=== PATIENT | male | born 1995 | race Caucasian/White ===

== ENCOUNTER 2023-07-04 11:50 | Outpatient (AMB) | payer OTHER, SELFPAY ==
--- NOTE | 2023-07-04 11:51 | MHC.PC.OV ---
Vital Signs 07/04/23 11:59 Weight 178 lb 8 oz BP 102/58 L Blood Pressure Location Lt brachial Position Sitting Respiration 14 Pulse 96 Pulse Source Pulse Oximeter Pulse Oximetry (%) 99 Oxygen Delivery Method Room Air Intake Visit Reasons: Infected Green Finger Intake Note: Patient is here for an evaluation of his R middle finger which appears swollen, green in color and patient reports pain is an 8/10. Patient reports this has been ongoing for 2 weeks and he has started having difficulty grabbing things with his right hand. Patient is accompanied by his family member at todays visit. Shoe Worker Required: No Accompanied by: Unknown Allergies No Known Allergies Allergy (Verified 07/04/23 12:05) Tobacco use date assessed: 07/04/23 HPI Infected Green Finger HPI Details 28 y/o male presents with ? infected R middle finger. Patient is here for an evaluation of his R middle finger which appears swollen, green in color and patient reports pain is an 8/10. Patient reports this has been ongoing for 2 weeks and he has started having difficulty grabbing things with his right hand. [facility] Medical History (Updated 07/04/23 @ 12:39 by Alexander Claire) Small bowel obstruction Family History (System 11/07/20 @ 07:07 by Naila Martinez) Mother No problems noted. Father No problems noted. Social History (System 11/07/20 @ 07:07 by Naila Martinez) Housing: Apartment Alcohol intake: current Alcohol intake frequency: a few times a week Alcohol type: beer Patient Tobacco Use Status: Current everyday Tobacco user Cigarettes Per Day: 5 e-Cigarette/Vaping Use: Never Used Second Hand Smoke Exposure: No service: No Current occupational status: unemployed Current occupational exposures/hazards: No Cognitive needs: No Hearing needs: No Vision needs: No Questionnaire CORNELIA-7 AMB Questionnaire CORNELIA-7 Date CORNELIA - 7 assessed: 05/11/22 Source: Developed by Drs. John Brown, Татьяна Lowery, Yaya Bond and colleagues, with an educational dylan from [employer]. Review of Systems Const Denies chills, Denies fatigue, Denies fever(s), Denies headache(s) and Denies weakness ENT Denies dizziness and Denies headache(s) Card Denies dyspnea Resp Denies cough, Denies dyspnea, Denies wheezing and Denies other (shortness of breath) Musc Denies numbness and Denies tingling Neuro Denies dizziness, Denies headache(s), Denies numbness, Denies tingling and Denies weakness Psych Denies anxiety and Denies depression Endo Denies fatigue Aller/Immun Denies wheezing Physical exam (Primary Care) Vital Signs: Last Vital Signs Pulse 96 07/04/23 11:59 Resp 14 07/04/23 11:59 BP 102/58 L 07/04/23 11:59 Pulse Ox 99 07/04/23 11:59 Oxygen Delivery Method Room Air 07/04/23 11:59 Tobacco/Smoking Status: Tobacco use Status Tobacco use date assessed 07/04/23 07/04/23 12:06 Patient Tobacco Use Status Current everyday Tobacco 07/04/23 11:52 e-Cigarette/Vaping Use Never Used 07/04/23 11:52 Const General: well developed; No acute distress Nutritional Appearance: well nourished Orientation/consciousness: patient oriented x3 HENMT Head: Yes normocephalic and Yes atraumatic Eyes General: appearance normal, both eyes and all related structures Pupils: Equal, round and reactive pupils present EOM: EOMs intact bilaterally Resp Effort & Inspection: normal respiratory effort Neuro General: patient oriented x3 and gait normal Cranial nerves: Yes Equal, round and reactive pupils present Extrem Other: Distal?tip?of?right?3rd?finger?is?red?and?swollen?and?tender. Periungual?region?has?fluctuant?but?firm?abscess Psych Affect: normal affect Assessment and Plan Assessment & Plan (1) Infection of finger: Code(s): L08.9 - Local infection of the skin and subcutaneous tissue, unspecified Plan: The?patient's?finger?was?prepped?and?draped?in?the?usual?fashion using?Betadine?solution Ethyl?chloride?was?used?as?a?distracted?anesthetic A?single?stab?wound?with a #11 scalpel?was?made?at?the?dorsal?distal?tip?of?the?finger?about?0.5?cm?from?the?fingernail. Approximately?3?cc?of?pus?was?expressed. A?wound?culture?was?acquired?and?will?be?sent?to?the?lab Patient?tolerated?the?procedure?well?and?noted?relief. Will?start?him?on?cephalexin?and?he?should?finish?all?the?antibiotic?unless?there?is?a?problem.??Call?for?any?problems. (2) Abscess: Code(s): L02.91 - Cutaneous abscess, unspecified Orders: Orders Routine Culture w Gram Stain Today L02.91 - Cutaneous abscess, unspecified Medications: New cephalexin 500 mg PO Q12H 10 days 20 caps 0RF Coding Level of Care Code Est Pt Level 3 (36502) Diagnoses Infection of finger L08.9 Abscess L02.91
[2023-07-04 11:59] VITALS: BP 102/58; PULSE 96; RESP 14; O2SAT 99
== END 2023-07-04 12:51 | disposition home or self-care (01) ==
PROVIDERS: PCP Family Medicine; Visit Provider Family Medicine
DX: L08.9 Local infection of the skin and subcutaneous tissue, unspecified (principal); L02.511 Cutaneous abscess of right hand
CPT/HCPCS: 10060; 99213

== ENCOUNTER 2023-07-04 12:46 | Outpatient (REF) | payer OTHER, SELFPAY | END 2023-07-04 12:47 | disposition home or self-care (01) | LOC: HO.LAB 12:46 | PROVIDERS: Visit Provider Family Medicine | DX: L02.91 Cutaneous abscess, unspecified (principal) | CPT/HCPCS: 87070; 87205 ==

== ENCOUNTER 2024-03-01 11:12 | Outpatient (AMB) | payer OTHER, SELFPAY ==
--- OUTSIDE RECORDS SUMMARY | 2024-03-01 11:13 | XMS_ITS | Continuity of Care Document ---
Author Organization [facility] ter Address [address] [place] [id number]- Care Team Providers Care Pharmacology Teacher Name Role Phone Not on Staff, PCP Primary Care Physician Unavail able Encounter [facility] Date(s): 06/20/20 - 06/20/[address] [address]- Discharge Disposition: A-D/C Home Attending Physician: Igor Nevarez MD Admitting Physician: Igor Nevarez MD Referring Physician: Not on Staff, Referring MD Allergies, Adverse Reactions, Alerts Substance Reaction Severity Status NKA Active Immunizations Given and Recorded Vaccine Date Status Refusal Reason tetanus/diphtheria/pertussis, acel(Tdap) 06/20/20 Given Not Given Vaccine Date Status Refusal Reason pneumococcal 23-valent vaccine 12/24/18 Not Given Patient Refuses pneumococcal 23-valent vaccine 11/10/18 Not Given Patient Refuses Medications acetaminophen 325 mg oral tablet 650 mg, 2, tablet, By Mouth, Every 4 hours, PRN, Refills 0, Maintenance, as needed for pain, 01/18/19 13:40:55 EDT Start Date: 01/18/19 Status: Ordered buPROPion 100 mg oral tablet 1 tablet = 100 mg, By Mouth, 2 times a day, 0 Refills, Maintenance, 12/23/18 22:16:10 EDT Start Date: 12/23/18 Status: Ordered buPROPion 100 mg/12 hours (SR) oral tablet, extended release 1 tablet = 100 mg, By Mouth, Daily in AM, # 30 tablet, 0 Refills, Maintenance, 11/16/18 10:14:13 EDT, SR Tablet Start Date: 11/16/18 Stop Date: 12/16/18 Status: Ordered docusate sodium 100 mg oral capsule 100 mg, 1, capsule, By Mouth, 2 times a day, PRN, # 60 capsule, Refills 0, Tot. Refills 0, Maintenance, as needed for constipation, 01/05/19 15:32:35 EDT, Print Requisition Start Date: 01/05/19 Stop Date: 02/04/19 Status: Ordered gabapentin 100 mg oral capsule 100 mg, 1, capsule, By Mouth, 3 times a day, # 90 capsule, Refills 0, Tot. Refills 0, Maintenance, 01/18/19 14:13:57 EDT, Route to Pharmacy Electronically, [id number], [facility]/pharmacy #[id number] Start Date: 01/18/19 Status: Ordered HydrOXYzine HCL Tablet = 50 mg, By Mouth, 2 times a day, 0 Refills, Maintenance, 12/23/18 22:14:44 EDT Start Date: 12/23/18 Status: Ordered ibuprofen 600 mg oral tablet 600 mg, 1, tablet, By Mouth, 4 times a day, PRN, # 40 tablet, Refills 0, Tot. Refills 0, Maintenance, for pain, 01/24/19 23:00:55 EDT, Print Requisition Start Date: 01/24/19 Stop Date: 02/03/19 Status: Ordered Keppra 750 mg oral tablet 1 tablet = 750 mg, By Mouth, 2 times a day, # 60 tablet, 0 Refills, Maintenance, 04/07/20 3:59:00 EDT, Tablet, [facility]/pharmacy #[id number], 183, cm, 04/07/20 0:50:00 EDT, Height, 91, kg, 04/07/20 0:50:00 EDT,Dry Weight Start Date: 04/07/20 Status: Ordered Keppra 750 mg oral tablet 1 tablet = 750 mg, By Mouth, 2 times a day, # 60 tablet, 0 Refills, Maintenance, 04/07/20 4:05:00 EDT, Tablet, [facility]/pharmacy #[id number], 183, cm, 04/07/20 0:50:00 EDT, Height, 91, kg, 04/07/20 0:50:00 EDT,Dry Weight Start Date: 04/07/20 Status: Ordered Keppra XR 750 mg oral tablet, extended release 2 tablet = 1,500 mg, By Mouth, Daily, pt states he doesn't take his meds regularly, # 60 tablet, 0 Refills, Maintenance, 01/11/17 23:59:57, ER Tablet Start Date: 01/11/17 Status: Ordered levETIRAcetam = 750 mg, By Mouth, 2 times a day, 0 Refills, Maintenance, 12/23/18 22:16:59 EDT Start Date: 12/23/18 Status: Ordered levETIRAcetam 750 mg oral tablet 1 tablet = 750 mg, By Mouth, 2 times a day, # 60 tablet, 0 Refills, Maintenance, 11/16/18 10:13:55 EDT Start Date: 11/16/18 Stop Date: 12/16/18 Status: Ordered oxyCODONE 5 mg oral capsule 1 capsule = 5 mg, By Mouth, Every 6 hours, PRN for pain, # 7 capsule, 0 Refills, Maintenance, 01/26/19 6:42:50 EDT, Capsule, Partial fill upon patient request Start Date: 01/26/19 Status: Ordered oxyCODONE 5 mg oral tablet 5 mg, 1, tablet, By Mouth, Every 6 hours, PRN, Refills 0, Tot. Refills 0, Maintenance, for pain, 01/18/19 13:40:31 EDT, Partial fill upon patient request Start Date: 01/18/19 Status: Ordered Quetiapine 200 mg, By Mouth, Daily, Refills 0, Maintenance, 12/23/18 22:17:40 EDT Start Date: 12/23/18 Status: Ordered SEROquel 200 mg oral tablet See Instructions, take 2 tabs by mouth daily at supper, and 1/2 tab by mouth twice a day as needed for anxiety/agitation. not to exceed 600mg per day., # 90 tablet, Refills 0, Tot. Refills 0, Maintenance, 11/16/18 10:14:41 EDT, Instructions Replace Re... Start Date: 11/16/18 Status: Ordered Zolpidem 10, By Mouth, Daily at bedtime, 0 Refills, Maintenance, 12/23/18 22:18:28 EDT Start Date: 12/23/18 Status: Ordered Problem List Condition Effective Dates Status Health Status Inform ant Depression(Confirmed) Active Seizure(Confirmed) Active Generalized tonic-clonic seizure(Confirmed) Active Results Radiology Reports * Exam Date Time Procedure Performing Provider Status 06/20/20 1:44 PM Hand Min 3 Views Right John Dominguez (Verified) Notes: (Hand Min 3 Views Right) Reason For Exam: with Pain;Trauma RESULT: Hand Min 3 Views Right PROCEDURE: Hand Min 3 Views Right CLINICAL INDICATION: 25 years old Male pt reports cutting 3rd and 4th fingers on R hand yesterday with a kitchen knife, c o pain and coming for eval.; COMPARISONS: None. FINDINGS: Bones and joints: No fracture or dislocation. Joint spaces are normal. Soft Tissues: Regional soft tissues are unremarkable. No evidence of radiopaque foreign body. IMPRESSION: 1. No evidence of acute bony injuries. Thank you for allowing me to participate in the care of this patient. WSN: [id number] Ordering Physician: John Mcintyre MD Dictated By: Minna Caputo MD Dictated Date/Time: 06/20/20 2:33 pm Reviewed By: Minna Caputo MD Signed By: Minna Caputo MD Signed Date/Time: 06/20/20 2:33 pm Transcribed By: KIMMIE Transcribed Date/Time: 06/20/20 2:32 pm Vital Signs Most recent to oldest [Reference Range]: 1 2 Weight 86.1 kg (06/20/20 1:32 PM) 86.1 kg (06/20/20 1:31 PM) Oxygen Saturation [94-100 %] 98 % (06/20/20 1:31 PM) Pulse Rate [55-90 bpm] 70 bpm (06/20/20 1:31 PM) Blood Pressure [90-138/55-84 mm Hg] 127/ 69mm Hg (06/20/20 1:31 PM) Respiratory Rate [16-30 br/min] 14 br/mi n *L* (06/20/20 1:31 PM) Temperature [96.8-100.4 DegF] 98.6 DegF (06/20/20 1:31 PM) Mode of Delivery (Oxygen) Room air (06/20/20 1:31 PM) Blood pressure sites Arm, right (06/20/20 1:31 PM) Temperature Route Oral (06/20/20 1:31 PM) Dry Weight 86.1 kg (06/20/20 1:32 PM) 86.1 kg (06/20/20 1:31 PM) Weight Obtained Via Standing scale (06/20/20 1:31 PM) Dry Weight Obtained Via Standing scale (06/20/20 1:31 PM) Social History Social History Type Response Smoking Status Never smoker entered on: 03/14/15 Sex Male
--- OUTSIDE RECORDS SUMMARY | 2024-03-01 11:13 | XMS_ITS | Continuity of Care Document ---
Author Organization [facility] Address [address] [facility], [address] d Floor, [address] [place] [phone]- Care Team Providers Care Corrugator Machine Operator Name Role Phone Not on Staff, PCP Primary Care Physician Unavail able [place] [facility] [place]/23 [facility] [address], [address], [address] [place] [address]- Attending Physician: Kath Hadley Admitting Physician: Kath Hadley Referring Physician: AdmtrKath Allergies, Adverse Reactions, Alerts No Known Allergies Immunizations Given and Recorded Vaccine Date Status Refusal Reason tetanus/diphtheria/pertussis, acel(Tdap) 06/20/20 Given Medications acetaminophen 325 mg oral tablet 650 [...] 01/18/19 14:13:57 EDT, Route to Pharmacy Electronically, [id number], [facility]/pharmacy #[id number] Start Date: 01/18/19 Status: Ordered hydrOXYzine hydrochloride 25 mg oral tablet 1 tablet = 25 mg, By Mouth, 2 times a day, # 30 tablet, 0 Refills, Maintenance, 04/14/23 20:36:00 EDT, Tablet, Partial fill upon patient request if the prescription is for a schedule II opioid drug. Start Date: 04/14/23 Status: Ordered ibuprofen 600 mg oral tablet 600 mg, 1, tablet, By Mouth, 4 times a day, PRN, # 40 tablet, Refills 0, Tot. Refills 0, Maintenance, for pain, 01/24/19 23:00:55 EDT, Print Requisition Start Date: 01/24/19 Stop Date: 02/03/19 Status: Ordered Keppra 1000 mg oral tablet 1 tablet = 1,000 mg, By Mouth, 2 times a day, # 60 tablet, 0 Refills, Maintenance, 04/15/23 12:33:00 EDT, Tablet, Partial fill upon patient request if the prescription is for a schedule II opioid drug. Start Date: 04/15/23 Status: Ordered methadone 40 mg oral tablet, dispersible = 60 mg, By Mouth, Daily, 0 Refills, Maintenance, 04/14/23 20:51:00 EDT, Partial fill upon patient request if the prescription is for a schedule II opioid drug. Start Date: 04/14/23 Status: Ordered naloxone 4 mg/0.1 mL nasal spray 1 sprays, Naris, Left, Once, PRN Other respiratory depression, # 1 kit, 0 Refills, Soft Stop, 07/09/20 11:32:00 EST, [facility]/pharmacy #[id number], Partial fill upon patient request if the prescription is fora schedule II opioid drug., 183, cm, 04/07/20 0:50:... Start Date: 07/09/20 Status: Ordered prazosin 1 mg oral capsule 1 mg, 1, capsule, By Mouth, Daily at bedtime, # 30 tablet, Refills 0, Maintenance, 04/14/23 20:19:00 EDT, Partial fill upon patient request if the prescription is for a schedule II opioid drug. Start Date: 04/14/23 Status: Ordered Suboxone 8 mg-2 mg Sublingual Film 2 film, Sublingual, Daily, XDEA script for dr robles starr [id number], # 10 film, 0 Refills, Maintenance, 07/09/20 11:32:00 EST, [facility]/pharmacy #[id number], Partial fill upon patient request if the prescription is for a schedule II opioid drug., 2 film Beltran... Start Date: 07/09/20 Status: Ordered Problem List Condition Confirmation Course Effective Dates Status Health St atus Informant Depression Confirmed Active Seizure Confirmed Active Generalized tonic-clonic seizure Confirmed Active Social History Social History Type Response Smoking Status Smoker, current stat us unknown entered on: 04/14/23 Sex Male Patient Care team information Care Team Personnel Name: Belem Ruiz RN Position: [facility] RN Member Role: Primary Care Nurse Name: Not on Staff, PCP Position: [facility] Physician (General Medicine) Member Role: PCP Name: Jessy Easton RN Position: S RN Member Role: Primary Care Nurse Name: Thalia Nguyen RN Position: S RN Member Role: Primary Care Nurse Care Team Related Persons Name: MERLIN AVILAA Address: [address] [place] [address] Name: ERICKSON HUITRON Address: [address] [place] [address]
--- OUTSIDE RECORDS SUMMARY | 2024-03-01 11:13 | XMS_ITS | Continuity of Care Document ---
Author Organization [facility] ter Address [address] [place] [phone]- Care Team Providers Care Foxer Name Role Phone Ben ROUSE, Shannan Primary Care Physician [phone] [place] [facility] [place] 10/[place]/[address] [address] [place] Encounter Diagnosis Opiate overdose(Final) - 10/25/19 Discharge Disposition: A-D/C Home Attending Physician: John Paul Herrera MD Admitting Physician: John Paul Herrera MD Referring Physician: Not on Staff, Referring MD Allergies, Adverse Reactions, Alerts Substance Reaction Severity Status NKA Active Immunizations Not Given Vaccine Date Status Refusal Reason [...] 01/18/19 14:13:57 EDT, Route to Pharmacy Electronically, [id number], [facility]/pharmacy #[id number] Start Date: 01/18/19 Status: Ordered HydrOXYzine [...] 01/24/19 Stop Date: 02/03/19 Status: Ordered Keppra XR 750 mg oral [...] Active Seizure(Confirmed) Active Generalized tonic-clonic seizure(Confirmed) Active Vital Signs Most recent to oldest [Reference Range]: 1 2 3 Oxygen Saturation [94-100 %] 95 % (10/25/19 9:28 AM) 98 % (10/25/19 8:37 AM) 97 % (10/25/19 6:05 AM) Pulse Rate [55-90 bpm] 113 bpm *H* (10/25/19 9:28 AM) 104 bpm *H* (10/25/19 8:37 AM) 115 bpm *H* (10/25/19 6:05 AM) Blood Pressure [90-138/55-84 mm Hg] 134/75mm Hg (10/25/19 9:28 AM) 137/92mm Hg (10/25/19 8:37 AM) 134/88mm Hg (10/25/19 6:05 AM) Respiratory Rate [16-30 br/min] 18 br/min (10/25/19 9:28 AM) 20 br/min (10/25/19 8:37 AM) 19 br/min (10/25/19 6:05 AM) Temperature [96.8-100.4 DegF] 97.7 DegF (10/25/19 8:37 AM) 97.3 DegF (10/25/19 6:05 AM) Mode of Delivery (Oxygen) Room air (10/25/19 9:28 AM) Room air (10/25/19 8:37 AM) Room air (10/25/19 6:05 AM) Blood pressure sites Arm, left (10/25/19 9:28 AM) Arm, left (10/25/19 8:37 AM) Temperature Route Oral (10/25/19 6:05 AM) Social History Social History Type Response Smoking Status Never smoker entered on: 03/14/15 Sex Male
--- OUTSIDE RECORDS SUMMARY | 2024-03-01 11:13 | XMS_ITS | Continuity of Care Document ---
Author Organization [facility] ter Address [address] [place] [id number]- Care Team Providers Care Painter Helper Name Role Phone Not on Staff, PCP Primary Care Physician Unavail able Encounter [facility] [place] Date(s): 11/09/20 - 11/10/[address] [address]- Encounter Diagnosis Seizure(Final) - 11/09/20 Discharge Disposition: A-D/C Home Attending Physician: Kymberly Matos MD Admitting Physician: Kymberly Matos MD Referring Physician: Not on Staff, Referring [...] 01/18/19 14:13:57 EDT, Route to Pharmacy Electronically, [id number], [facility]/pharmacy #[id number] Start Date: 01/18/19 Status: Ordered [...] 0 Refills, Maintenance, 04/07/20 3:59:00 EDT, Tablet, [facility]/pharmacy #[id number], 183, cm, 04/07/20 0:50:00 EDT, Height, 91, kg, 04/07/20 0:50:00 EDT,Dry Weight Start Date: 04/07/20 Status: Ordered Keppra 750 mg oral tablet 1 tablet = 750 mg, By Mouth, 2 times a day, # 60 tablet, 0 Refills, Maintenance, 04/07/20 4:05:00 EDT, Tablet, [facility]/pharmacy #[id number], 183, cm, 04/07/20 0:50:00 EDT, Height, 91, kg, 04/07/20 0:50:00 EDT,Dry Weight Start Date: 04/07/20 Status: Ordered Keppra 750 mg oral tablet 1 tablet = 750 mg, By Mouth, 2 times a day, # 60 tablet, 0 Refills, Maintenance, 11/09/20 18:16:00 EDT, Tablet, [facility]/pharmacy #[id number], Partial fill upon patient request if the prescription is for a schedule II opioid drug., 183, krystal, 10/29/20 23:23:00 EDT... Start Date: 11/09/20 Stop Date: 12/09/20 Status: Ordered Keppra XR 750 mg oral [...] Date: 11/16/18 Stop Date: 12/16/18 Status: Ordered naloxone 4 mg/0.1 mL nasal spray 1 sprays, Naris, Left, Once, PRN Other respiratory depression, # 1 kit, 0 Refills, Soft Stop, 07/09/20 11:32:00 EST, [facility]/pharmacy #[id number], Partial fill upon patient request if the prescription is fora schedule II opioid drug., 183, cm, 04/07/20 0:50:... Start Date: 07/09/20 Status: Ordered oxyCODONE 5 mg oral capsule [...] Replace Re... Start Date: 11/16/18 Status: Ordered Suboxone 8 mg-2 mg Sublingual Film 2 film, Sublingual, Daily, XDEA script for dr robles starr [id number], # 10 film, 0 Refills, Maintenance, 07/09/20 11:32:00 EST, [facility]/pharmacy #[id number], Partial fill upon patient request if the prescription is for a schedule II opioid drug., 2 film Beltran... Start Date: 07/09/20 Status: Ordered Zolpidem 10, By Mouth, Daily at bedtime, 0 Refills, Maintenance, 12/23/18 22:18:28 EDT Start Date: 12/23/18 Status: Ordered Problem List Condition Effective Dates Status Health Status Inform ant Depression(Confirmed) Active Seizure(Confirmed) Active Generalized tonic-clonic seizure(Confirmed) Active Vital Signs Most recent to oldest [Reference Range]: 1 2 3 Oxygen Saturation [94-100 %] 98 % (11/09/20 10:00 PM) 100 % (11/09/20 7:56 PM) 98 % (11/09/20 4:55 PM) Pulse Rate [55-90 bpm] 59 bpm (11/09/20 10:00 PM) 62 bpm (11/09/20 7:56 PM) 68 bpm (11/09/20 4:55 PM) Blood Pressure [90-138/55-84 mm Hg] 111/75mm Hg (11/09/20 10:00 PM) 104/58mm Hg (11/09/20 7:56 PM) 98/54mm Hg (11/09/20 4:55 PM) Respiratory Rate [16-30 br/min] 12 br/min *L* (5/16/21 10:00 PM) 13 br/min *L* (11/09/20 7:56 PM) 14 br/min *L* (11/09/20 4:55 PM) Temperature [96.8-100.4 DegF] 98.1 DegF (11/09/20 7:56 PM) 98.2 DegF (11/09/20 1:44 PM) Mode of Delivery (Oxygen) Room air (11/09/20 10:00 PM) Room air (11/09/20 7:56 PM) Room air (11/09/20 4:55 PM) Blood pressure sites Arm, left (11/09/20 10:00 PM) Arm, left (11/09/20 7:56 PM) Arm, left (11/09/20 4:55 PM) Temperature Route Oral (11/09/20 7:56 PM) Oral (11/09/20 1:44 PM) Social History Social History Type Response Smoking Status Never smoker entered on: 03/14/15 Sex Male
--- OUTSIDE RECORDS SUMMARY | 2024-03-01 11:13 | XMS_ITS | Continuity of Care Document ---
Author Organization [facility] Address [address] [facility] [place], [address] Floor, [address] [place] [phone]- Care Team Providers Care Frame Changer Name Role Phone Not on Staff, PCP Primary Care Physician Unavail able Encounter [facility] [place] Date(s): 05/05/23 - 09/02/23 [facility] [address], [address], [address] [place] [id number]- Attending Physician: Pilo De Souza MD Admitting Physician: Pilo De Souza MD Allergies, Adverse Reactions, Alerts No Known Allergies [...] 01/18/19 14:13:57 EDT, Route to Pharmacy Electronically, [id number], [facility]/pharmacy #[id number] Start Date: 01/18/19 Status: Ordered hydrOXYzine [...] 0 Refills, Soft Stop, 07/09/20 11:32:00 EST, [facility]/pharmacy #[id number], Partial fill upon patient request if [...] Daily, XDEA script for dr robles starr [id number], # 10 film, 0 Refills, Maintenance, 07/09/20 11:32:00 EST, [facility]/pharmacy #[id number], Partial fill upon patient request if [...] Team Personnel Name: Belem Ruiz RN Position: [facility] RN Member Role: Primary Care Nurse Name: Not on Staff, PCP Position: [facility] Physician (General Medicine) Member Role: PCP Name: Jessy Easton RN Position: [facility] RN Member Role: Primary Care Nurse Name: Thalia Nguyen RN Position: [facility] RN Member Role: Primary Care Nurse Care Team Related Persons Name: NATA AVILA Address: home [address] [place] [address] Name: ERICKSON HUITRON Address: [address] [place] [address]
--- OUTSIDE RECORDS SUMMARY | 2024-03-01 11:13 | XMS_ITS | Continuity of Care Document ---
Author Organization [facility] ter Address [address] [place] [id number]- Care Team Providers Care Artillery Or Naval Gunfire Observer Name Role Phone Not on Staff, PCP Primary Care Physician Unavail able Encounter [facility] Date(s): 01/28/21 - 01/28/[address] [address]- Discharge Disposition: A-D/C Home Attending Physician: Jose Arroyo MD Admitting Physician: Jose Arroyo MD Referring Physician: Not on Staff, Referring [...] 01/18/19 14:13:57 EDT, Route to Pharmacy Electronically, [id number], [facility]/pharmacy #[id number] Start Date: 01/18/19 Status: [...] 0 Refills, Maintenance, 04/07/20 3:59:00 EDT, Tablet, [facility]/pharmacy #[id number], 183, cm, 04/07/20 0:50:00 EDT, Height, 91, kg, 04/07/20 0:50:00 EDT,Dry Weight Start Date: 04/07/20 Status: Ordered Keppra 750 mg oral tablet 1 tablet = 750 mg, By Mouth, 2 times a day, # 60 tablet, 0 Refills, Maintenance, 04/07/20 4:05:00 EDT, Tablet, [facility]/pharmacy #[id number], 183, cm, 04/07/20 0:50:00 EDT, Height, 91, kg, 04/07/20 0:50:00 EDT,Dry Weight Start Date: 04/07/20 Status: Ordered Keppra 750 mg oral tablet 1 tablet = 750 mg, By Mouth, 2 times a day, # 60 tablet, 0 Refills, Maintenance, 11/09/20 18:16:00 EDT, Tablet, [facility]/pharmacy #[id number], Partial fill upon patient request if the prescription is for a schedule II opioid drug., 183, cm, 10/29/20 23:23:00 EDT... Start Date: 11/09/20 Stop [...] 0 Refills, Soft Stop, 07/09/20 11:32:00 EST, [facility]/pharmacy #[id number], Partial fill upon patient [...] Daily, XDEA script for dr robles starr [id number], # 10 film, 0 Refills, Maintenance, 07/09/20 11:32:00 EST, [facility]/pharmacy #[id number], Partial fill upon patient [...] 1 2 3 Oxygen Saturation [94-100 %] 99 % (01/28/21 10:50 PM) 99 % (01/28/21 8:56 PM) 98 % (01/28/21 8:43 PM) Pulse Rate [55-90 bpm] 80 bpm (01/28/21 10:50 PM) 69 bpm (01/28/21 8:56 PM) 78 bpm (01/28/21 8:43 PM) Blood Pressure [90-138/55-84 mm Hg] 102/51mm Hg (01/28/21 10:50 PM) 114/55mm Hg (01/28/21 8:56 PM) 114/55mm Hg (01/28/21 8:43 PM) Respiratory Rate [16-30 br/min] 18 br/min (01/28/21 10:50 PM) 13 br/min *L* (01/28/21 8:56 PM) 18 br/min (01/28/21 8:43 PM) Temperature [96.8-100.4 DegF] 99.9 DegF (01/28/21 4:44 PM) Mode of Delivery (Oxygen) Room air (01/28/21 10:50 PM) Room air (01/28/21 8:56 PM) Room air (01/28/21 8:43 PM) Blood pressure sites Arm, right (01/28/21 10:50 PM) Arm, left (01/28/21 8:56 PM) Arm, right (01/28/21 8:43 PM) Temperature Route Oral (01/28/21 4:44 PM) Social History Social History Type Response Smoking Status Never smoker entered on: 03/14/15 Sex Male
--- OUTSIDE RECORDS SUMMARY | 2024-03-01 11:13 | XMS_ITS | Continuity of Care Document ---
Author Organization [facility] ter Address [address] [place] [id number]- Care Team Providers Care Knitter Wire Mesh Name Role Phone Not on Staff, PCP Primary Care Physician Unavail able [place] [facility] [place]24[place]23 - 04/25/[address] [address]- Encounter Diagnosis Seizure(Final) - 04/25/23 Discharge Disposition: A-D/C Senior Care, Detention, or Halfway Fac Attending Physician: John Paul Herrera MD Admitting Physician: John Paul Herrera MD Referring Physician: Not on Staff, Referring MD Allergies, Adverse Reactions, Alerts No Known [...] 01/18/19 14:13:57 EDT, Route to Pharmacy Electronically, [id number], [facility]/pharmacy #[id number] Start Date: 01/18/19 Status: Ordered [...] 0 Refills, Soft Stop, 07/09/20 11:32:00 EST, [facility]/pharmacy #[id number], Partial fill upon patient request [...] Daily, XDEA script for dr robles starr [id number], # 10 film, 0 Refills, Maintenance, 07/09/20 11:32:00 EST, [facility]/pharmacy #[id number], Partial fill upon patient request if the prescription is for a schedule II opioid drug., 2 film Beltran... Start Date: 07/09/20 Status: Ordered Problem List Condition Confirmation Course Effective Dates Status Health St atus Informant Depression Confirmed Active Seizure Confirmed Active Generalized tonic-clonic seizure Confirmed Active Results Radiology Reports * Exam Date Time Procedure Performing Provider Status 04/25/23 1:31 AM XR Hip w/Pelvis 2-3 View Left Ting Mark; Auth (Verified) Notes: (XR Hip w/Pelvis 2-3 View Left) Reason For Exam: With Pain;Trauma RESULT: XR Hip w/Pelvis 2-3 View Left XR Hip w/Pelvis 2-3 View Left Hx of Present Illness: Coming from [facility] - had seizure approx 2-3 min and 2nd seizure, hx of seizures, on Keppra. Pt also sustained fall from top bunk earlier in day, abrasions reported toR leg, pt bit tongue, swelling to R face.; Reason: Trauma; With Pain; Clinical Question(s): Fracture. COMPARISON: None. FINDINGS: No acute displaced fracture or dislocation is seen. There is healed deformity of the proximal rightfemoral diaphysis with partially visualized intramedullary caleb and proximal interlocking screws. Normal hips and sacroiliac joints. Normal soft tissues. IMPRESSION: No acute displaced fracture. WSN: [id number] Ordering Physician: Yessi Medrano Dictated By: Jolly Malik MD Dictated Date/Time: 04/25/23 6:15 am Reviewed By: Jolly Malik MD Signed By: Jolly Malik MD Signed Date/Time: 04/25/23 6:15 am Transcribed By: KIMMIE Transcribed Date/Time: 04/25/23 6:12 am * Exam Date Time Procedure Performing Provider Status 04/25/23 1:[address] Lumbar Spine W/O Contrast Tigist Ruiz; Auth (Verified) Notes: (CT Lumbar Spine W/O Contrast) Reason For Exam: Spine fracture, lumbar, traumatic;Other: RESULT: CT Lumbar Spine W/O Contrast CT Thoracic Spine W/O Contrast, CT Lumbar Spine W/O Contrast INDICATION: Fell from top bunk of bed. Seizure activity. Back pain. TECHNIQUE: Noncontrast CT of the thoracic spine was performed. Bone and soft tissue algorithms werereconstructed along with coronal and sagittal computations. Weight-based protocol using automatic tube modulation was used to optimize exposure parameters. RADIATION DOSE PARAMETERS: CTDIvol Body: 28.20 mGy, DLP Body: 1696 mGy*cm. COMPARISON: None. FINDINGS: Spine: No fractures or bone lesion. There is normal alignment. No spondylolysis. There exists abnormal hypermetabolic degenerative change. Soft tissues: No acute abnormality in the paravertebral soft tissues. No pleural effusion. IMPRESSION: No fracture or thoracic spine or lumbar spine. No spondylolysis or spondylolisthesis. No degenerative changes. Results were relayed by [facility] by Dr. Kwan to Yessi VAUGHAN on 04/25/2023 2:00 AM. I have personally reviewed the images and I agree with this report. WSN: [id number] Ordering Physician: Yessi Medrano Dictated By: Chito Kwan MD Dictated Date/Time: 04/25/23 7:29 am Reviewed By: Jelani Velazquez MD Signed By: Jelani Velazquez MD Signed Date/Time: 04/25/23 7:34 am Transcribed By: KIMMIE Transcribed Date/Time: 04/25/23 2:01 am * Exam Date Time Procedure Performing Provider Status 04/25/23 1:[address] Thoracic Spine W/O Contrast Tigist Jean; Auth (Verified) Notes: (CT Thoracic Spine W/O Contrast) Reason For Exam: Spine fracture, thoracic, traumatic;Other: RESULT: CT Thoracic Spine W/O Contrast CT Thoracic Spine W/O Contrast, CT Lumbar Spine W/O Contrast INDICATION: Fell from top bunk of bed. Seizure activity. Back pain. TECHNIQUE: Noncontrast CT of the thoracic spine was performed. Bone and soft tissue algorithms werereconstructed along with coronal and sagittal computations. Weight-based protocol using automatic tube modulation was used to optimize exposure parameters. RADIATION DOSE PARAMETERS: CTDIvol Body: 28.20 mGy, DLP Body: 1696 mGy*cm. COMPARISON: None. FINDINGS: Spine: No fractures or bone lesion. There is normal alignment. No spondylolysis. There exists abnormal hypermetabolic degenerative change. Soft tissues: No acute abnormality in the paravertebral soft tissues. No pleural effusion. IMPRESSION: No fracture or thoracic spine or lumbar spine. No spondylolysis or spondylolisthesis. No degenerative changes. Results were relayed by [facility] by Dr. Kwan to Yessi VAUGHAN on 04/25/2023 2:00 AM. I have personally reviewed the images and I agree with this report. WSN: [id number] Ordering Physician: Yessi Medrano Dictated By: Chito Kwan MD Dictated Date/Time: 04/25/23 7:29 am Reviewed By: Jelani Velazquez MD Signed By: Jelani Velazquez MD Signed Date/Time: 04/25/23 7:34 am Transcribed By: KIMMIE Transcribed Date/Time: 04/25/23 2:01 am * Exam Date Time Procedure Performing Provider Status 04/25/23 1:[address] Cervical Spine W/O Contrast Tigist Jean; Auth (Verified) Notes: (CT Cervical Spine W/O Contrast) Reason For Exam: Neck trauma, dangerous injury mechanism;Other: RESULT: CT Cervical Spine W/O Contrast CT Head/Brain W/O Contrast, CT Cervical Spine W/O Contrast Hx of Present Illness: Coming from [facility] - had seizure approx 2-3 min and 2nd seizure, hx of seizures, on keppra. Pt also sustained fall from top bunk earlier in day, abrasions reported toR leg, pt bit tongue, swelling to R face.; Reason: Trauma; Clinical Question(s): Hematoma. Neck pain. TECHNIQUE: Incremental CT without contrast through the head was formatted in axial and coronal planes. Spiral CT without contrast through the cervical spine was formatted in 3 planes. Weight-based protocol using automatic tube modulation was used to optimize exposure parameters. CTDIvol Body: 13.70 mGy, DLP Body: 362 mGy*cm. CTDIvol Head: 40.90 mGy, DLP Head: 672 mGy*cm. COMPARISON: 04/14/2023. FINDINGS: BRAIN and EXTRA-AXIAL SPACES: No parenchymal hemorrhage, midline shift or mass effect. Dawkins-white matter differentiation is well preserved. No acute infarct. Negative insular ribbon and hyperdense vessel signs. Ventricles, sulci and basilar cisterns are normal. No white matter lesions. No subarachnoid hemorrhage, subdural or epidural collections. CALVARIUM, SKULL BASE AND SOFT TISSUES: No fractures or suspicious bony lesions. The paranasal sinuses and mastoid air cells are clear. Visualized orbits and globes are intact. The extracranial soft tissues are unremarkable. CERVICAL SPINE: No fracture. No acute osseous abnormalities. Normal alignment. No locked or perched facet. Intervertebral discs are normal. OTHER BONES: No acute abnormality. CERVICAL SOFT TISSUES AND LUNG APICES: Clear lung apices. Normal thyroid gland. IMPRESSION: No acute intracranial abnormality. No acute fracture of the cervical spine. Results were relayed by [facility] by Dr. Kwan to Yessi VAUGHAN on 04/25/2023 1:55 AM. I have personally reviewed the images and I agree with this report. WSN: [id number] Ordering Physician: Yessi Medrano Dictated By: Chito Kwan MD Dictated Date/Time: 04/25/23 7:23 am Reviewed By: Scot Okeefe MD Signed By: Scot Okeefe MD Signed Date/Time: 04/25/23 7:28 am Transcribed By: KIMMIE Transcribed Date/Time: 04/25/23 1:55 am * Exam Date Time Procedure Performing Provider Status 04/25/23 1:[address] Head/Brain W/O Contrast Tigist Ruiz; Auth (Verified) Notes: (CT Head/Brain W/O Contrast) Reason For Exam: Trauma RESULT: CT Head/Brain W/O Contrast CT Head/Brain W/O Contrast, CT Cervical Spine W/O Contrast Hx of Present Illness: Coming from [facility] - had seizure approx 2-3 min and 2nd seizure, hx of seizures, on keppra. Pt also sustained fall from top bunk earlier in day, abrasions reported toR leg, pt bit tongue, swelling to R face.; Reason: Trauma; Clinical Question(s): Hematoma. Neck pain. TECHNIQUE: Incremental CT without contrast through the head was formatted in axial and coronal planes. Spiral CT without contrast through the cervical spine was formatted in 3 planes. Weight-based protocol using automatic tube modulation was used to optimize exposure parameters. CTDIvol Body: 13.70 mGy, DLP Body: 362 mGy*cm. CTDIvol Head: 40.90 mGy, DLP Head: 672 mGy*cm. COMPARISON: 04/14/2023. FINDINGS: BRAIN and EXTRA-AXIAL SPACES: No parenchymal hemorrhage, midline shift or mass effect. Dawkins-white matter differentiation is well preserved. No acute infarct. Negative insular ribbon and hyperdense vessel signs. Ventricles, sulci and basilar cisterns are normal. No white matter lesions. No subarachnoid hemorrhage, subdural or epidural collections. CALVARIUM, SKULL BASE AND SOFT TISSUES: No fractures or suspicious bony lesions. The paranasal sinuses and mastoid air cells are clear. Visualized orbits and globes are intact. The extracranial soft tissues are unremarkable. CERVICAL SPINE: No fracture. No acute osseous abnormalities. Normal alignment. No locked or perched facet. Intervertebral discs are normal. OTHER BONES: No acute abnormality. CERVICAL SOFT TISSUES AND LUNG APICES: Clear lung apices. Normal thyroid gland. IMPRESSION: No acute intracranial abnormality. No acute fracture of the cervical spine. Results were relayed by [facility] by Dr. Kwan to Yessi VAUGHAN on 04/25/2023 1:55 AM. I have personally reviewed the images and I agree with this report. WSN: [id number] Ordering Physician: Yessi Medrano Dictated By: Chito Kwan MD Dictated Date/Time: 04/25/23 7:23 am Reviewed By: Scot Okeefe MD Signed By: Scot Okeefe MD Signed Date/Time: 04/25/23 7:28 am Transcribed By: KIMMIE Transcribed Date/Time: 04/25/23 1:55 am Vital Signs Most recent to oldest [Reference Range]: 1 2 3 Oxygen Saturation [94-100 %] 100 % (04/25/23 4:53 AM) 99 % (04/25/23 3:22 AM) 100 % (04/25/23 1:50 AM) Pulse Rate [55-90 bpm] 68 bpm (04/25/23 4:53 AM) 69 bpm (04/25/23 3:22 AM) 67 bpm (04/25/23 1:50 AM) Blood Pressure [90-138/55-84 mm Hg] 107/55mm Hg (04/25/23 4:53 AM) 101/61mm Hg (04/25/23 3:22 AM) 106/53mm Hg (04/25/23 1:50 AM) Respiratory Rate [16-30 br/min] 8 br/min *L* (04/25/23 4:53 AM) 10 br/min *L* (04/25/23 3:22 AM) 13 br/min *L* (04/25/23 1:50 AM) Temperature [96.8-100.4 DegF] 98.1 DegF (04/25/23 4:53 AM) 98.1 DegF (04/25/23 3:22 AM) 98.1 DegF (04/25/23 1:50 AM) Mode of Delivery (Oxygen) Room air (04/25/23 4:53 AM) Room air (04/25/23 3:22 AM) Room air (04/25/23 1:50 AM) Blood pressure sites Arm, right (04/25/23 4:53 AM) Arm, right (04/25/23 3:22 AM) Arm, right (04/25/23 1:50 AM) Temperature Route Oral (04/25/23 4:53 AM) Oral (04/25/23 3:22 AM) Oral (04/25/23 1:50 AM) Social History Social History Type Response Smoking Status Smoker, current stat us unknown entered on: 04/14/23 Sex Male Note * Yessi Perkins: PERFORM Event Display: Patient Education Leaflets Authored Date: [id number] Recurrent Seizure (Adult) ?? [id number] Recurrent Seizure (Adult) You have had another seizure today. A common cause of seizures that keep happening (recurrent seizures) is missing doses of seizure medicine. But sometimes seizures are hard to control even when you take the medicine correctly. If this is the case for you, your healthcare provider may need to increase your dosage. Or you may need to add or change to another medicine. Home care Follow these tips when caring for yourself at home. ??? Seizures aren???t predictable. So don't do anything that might cause danger to you or other people if you have another seizure. Until the seizures are under good control, take these safety steps:o Don???t drive, ride a motorcycle, or ride a bike. o Don???t operate dangerous equipment such as power tools. o Take showers instead of baths. o Don???t swim or climb ladders, trees, or roofs. ??? Tell your close friends and relatives about your seizure. Teach them what to do for you if it happensagain. ??? If medicine was prescribed to prevent seizures, take it exactly as directed. Missing doses will increase the risk of having another seizure. ??? If you miss a dose, take the missed dose assoon as you remember. If it's almost time for your next dose, skip the missed dose. Restart the medicine at your next scheduled time. Don???t take extra medicine to make up for the missed dose. ??? Wear a Medic-Alert bracelet to let emergency staff know about your condition. ??? Follow a regular sleep schedule so that you get at least 6 to 8 hours of restful sleep every night. This is especially important when you're sick with a cold or flu or another type of infection. ??? Alcohol and illegal drugs can cause you to have more seizures. Ask your provider if you are allowed to drink any alcohol at all. For future seizures, if you're alone: ??? If you feel a seizure coming on, lie down on a bed or on the floor with something soft under your head. This will keep you from falling. Lie on your left side, not on your back. This will let fluid drain out of your mouth and prevent choking. Be sure you are clear of any objects that might injure you during the seizure. Call for help if there is time. For future seizures, if someone is with you: ??? The person should help you get into a safe position and call for help. The person shouldn???t try to force anything in your mouth once the seizure begins. This could harm your teeth or jaw. ?? Follow-up care Follow up with your healthcare provider. Keep a seizure calendar to record how often you have a seizure. If you're being started on anti-seizure medicine, ask your provider if you need additional control. Seizure medicine can affect how well control pills work, and you could become . Some women who take seizure medicine also need certain vitamins. Tell your provider if you plan on getting or if you become . Don't drink alcohol until your provider tells you it???s OK. Each state has different laws that say when someone with seizures is allowed to drive. Some states require that a seizure disorder to be reported to the state. They don't allow you to drive until your seizures are controlled. Talk with your provider to see if this applies to you. ?? Important Don't drive until you've followed up with your healthcare provider and you've been cleared to drive. ?? When to get medical care Call your healthcare provider right away??if any of these occur: ??? Seizures happen more often or last longer than normal ??? A seizure lasts more than 5 minutes ??? You don???t wake up between seizures ??? Confusion that lasts more than 30 minutes after a seizure ??? Injury during a seizure ??? Fever of 100.4??F (38.0??C) or higher, or as advised by your provider ??? Unusual grouchiness, drowsiness, or confusion ??? Stiff or painful neck ??? Headache that gets worse? Last Reviewed Date: 2021 ?? 9127-0532 The [employer]. All rights reserved. This information is not intended as a substitute for professional medical care. Always follow your healthcare professional's instructions. ?? Patient Care team information Care Team Personnel Name: Belem Ruiz RN Position: [facility] RN Member Role: Primary Care Nurse Name: Not on Staff, PCP Position: [facility] Physician (General Medicine) Member Role: PCP Name: Jessy Easton RN Position: [facility] RN Member Role: Primary Care Nurse Name: Thalia Nguyen RN Position: [facility] RN Member Role: Primary Care Nurse Name: Daisy De Los Santos Position: [facility] MASSIEL SARGENT [facility] Member Role: Patient Care Provider Name: John Paul Herrera MD Position: [facility] ED Medicine MD Member Role: ED Attending Physician Address: Address: [address] [place] [address]- Name: Chio Monet Position: [facility] ED RN W/OE and Tasks Member Role: Patient Care Provider Name: Yessi Perkins Position: [facility] Associate Professional Member Role: ED Physician Counter Top Maker Address: Address: [address] [place] [address]- Care Team Related Persons Name: NATA AVILA Address: home [address] [place] [address] Name: ERICKSON HUITRON Address: home [address] [place] [address] Name: BUNNY HELM Address: home [address] [place] [address]
--- OUTSIDE RECORDS SUMMARY | 2024-03-01 11:13 | XMS_ITS | Continuity of Care Document ---
Author Organization [facility] ter Address [address] [place] [address]- Care Team Providers Care Activities Attendant Name Role Phone Not on Staff, PCP Primary Care Physician Unavail able [facility]counter [facility] Date[facility]s): 10/25/20 - 10/25/[address] [id number]- Discharge Disposition: A-D/C Walkout Attending Physician: Not on Staff, Attending MD Admitting Physician: Not on Staff, Admitting MD Referring Physician: Not on Staff, Referring [...] 01/18/19 14:13:57 EDT, Route to Pharmacy Electronically, [id number], [facility]/pharmacy #[id number] Start Date: 01/18/19 Status: Ordered [...] 0 Refills, Maintenance, 04/07/20 3:59:00 EDT, Tablet, [facility]/pharmacy #[id number], 183, cm, 04/07/20 0:50:00 EDT, Height, 91, kg, 04/07/20 0:50:00 EDT,Dry Weight Start Date: 04/07/20 Status: Ordered Keppra 750 mg oral tablet 1 tablet = 750 mg, By Mouth, 2 times a day, # 60 tablet, 0 Refills, Maintenance, 04/07/20 4:05:00 EDT, Tablet, [facility]/pharmacy #[id number], 183, cm, 04/07/20 0:50:00 EDT, [...] Stop, 07/09/20 11:32:00 EST, [facility]/pharmacy #[id number], Partial fill upon patient request [...] Daily, XDEA script for dr robles starr [id number], # 10 film, 0 Refills, Maintenance, 07/09/20 11:32:00 EST, [facility]/pharmacy #[id number], Partial fill upon patient request [...] Most recent to oldest [Reference Range]: 1 Oxygen Saturation [94-100 %] 99 % (10/25/20 7:06 PM) Pulse Rate [55-90 bpm] 103 bpm *H* (10/25/20 7:06 PM) Blood Pressure [90-138/55-84 mm Hg] 119/ 57mm Hg (10/25/20 7:06 PM) Respiratory Rate [16-30 br/min] 16 br/mi n (10/25/20 7:06 PM) Temperature [96.8-100.4 DegF] 98.5 DegF (10/25/20 7:06 PM) Mode of Delivery (Oxygen) Room air (10/25/20 7:06 PM) Blood pressure sites Arm, right (10/25/20 7:06 PM) Temperature Route Oral (10/25/20 7:06 PM) Social History Social History Type Response Smoking Status Never smoker entered on: 03/14/15 Sex Male
--- OUTSIDE RECORDS SUMMARY | 2024-03-01 11:14 | XMS_ITS | Continuity of Care Document ---
Author Organization [facility] ter Address [address] [place] [id number]- Care Team Providers Care Civil Engineering Draftsperson Name Role Phone Neal ROUSE, Giselle Way Primary Care Physician [place] [facility] [place](s): 11/18/21 - 11/18/[address] [address]- Discharge Disposition: A-D/C Home Attending Physician: Yris Park MD Admitting Physician: Yris Park MD Referring Physician: Not on Staff, Referring [...] 01/18/19 14:13:57 EDT, Route to Pharmacy Electronically, [id number], [facility]/pharmacy #[id number] Start Date: 01/18/19 [...] day, # 60 tablet, 0 Refills, Maintenance, 11/18/21 13:35:00 EDT, Tablet, [facility], Partial fill upon patient request if the prescription is for a schedule II opioid drug., 176, cm, 11/18/21 9:34:0... Start Date: 11/18/21 Stop Date: 12/18/21 Status: Ordered Keppra 750 mg oral tablet 1 tablet = 750 mg, By Mouth, 2 times a day, # 60 tablet, 0 Refills, Maintenance, 04/07/20 3:59:00 EDT, Tablet, [facility]/pharmacy #[id number], 183, cm, 04/07/20 0:50:00 EDT, Height, 91, kg, 04/07/20 0:50:00 EDT,Dry Weight Start Date: 04/07/20 Status: Ordered Keppra 750 mg oral tablet 1 tablet = 750 mg, By Mouth, 2 times a day, # 60 tablet, 0 Refills, Maintenance, 04/07/20 4:05:00 EDT, Tablet, [facility]/pharmacy #[id number], 183, cm, 04/07/20 0:50:00 EDT, Height, 91, kg, 04/07/20 0:50:00 EDT,Dry Weight Start Date: 04/07/20 Status: Ordered Keppra 750 mg oral tablet 1 tablet = 750 mg, By Mouth, 2 times a day, # 60 tablet, 0 Refills, Maintenance, 11/09/20 18:16:00 EDT, Tablet, [facility]/pharmacy #[id number], Partial fill upon [...] Daily, XDEA script for dr robles starr [id number], # 10 film, 0 Refills, Maintenance, 07/09/20 11:32:00 EST, [facility]/pharmacy #[id number], [...] Exam Date Time Procedure Performing Provider Status 11/18/21 10:41 AM Chest Portable Beckie Carlson; Auth (Verified) Notes: (Chest Portable) Reason For Exam: Shortness of Breath RESULT: Chest Portable Chest Portable CLINICAL INDICATION: Hx of Present Illness: Seizure; Reason: Shortness of Breath; Clinical Question(s): CHF COMPARISON: Chest x-ray, 02/25/2020. FINDINGS: The cardiac silhouette is within normal limits. Hilar and mediastinal contours are normal. The lungs are clear. There is no pleural effusion, pneumothorax, or evidence of CHF. No acute osseous abnormality is noted. IMPRESSION: No acute cardiopulmonary process. WSN: [id number] Ordering Physician: Kirk Hill Dictated By: Florence Tan MD Dictated Date/Time: 11/18/21 10:42 a Reviewed By: Florence Tan MD Signed By: Florence Tan MD Signed Date/Time: 11/18/21 10:42 am Transcribed By: KIMMIE Transcribed Date/Time: 11/18/21 10:42 am Vital Signs Most recent to oldest [Reference Range]: 1 2 3 Height 176 cm (11/18/21 9:30 AM) Weight 86.5 kg (11/18/21 9:30 AM) Oxygen Saturation [94-100 %] 100 % (11/18/21 1:30 PM) 100 % (11/18/21 12:00 PM) 96 % (11/18/21 10:00 AM) Pulse Rate [55-90 bpm] 82 bpm (11/18/21 1:30 PM) 81 bpm (11/18/21 12:00 PM) 87 bpm (11/18/21 10:00 AM) Blood Pressure [90-138/55-84 mm Hg] 128/83mm Hg (11/18/21 1:30 PM) 111/63mm Hg (11/18/21 12:00 PM) 94/51mm Hg (11/18/21 10:00 AM) Respiratory Rate [16-30 br/min] 18 br/min (11/18/21 1:30 PM) 16 br/min (11/18/21 12:00 PM) 18 br/min (11/18/21 10:00 AM) Temperature [96.8-100.4 DegF] 98.6 DegF (11/18/21 1:30 PM) 98.7 DegF (11/18/21 9:30 AM) Mode of Delivery (Oxygen) Room air (11/18/21 1:30 PM) Room air (11/18/21 12:00 PM) Room air (11/18/21 10:00 AM) Temperature Route Oral (11/18/21 1:30 PM) Oral (11/18/21 9:30 AM) Dry Weight 86.5 kg (11/18/21 9:30 AM) Social History Social History Type Response Smoking Status Never smoker entered on: 03/14/15 Sex Male
--- OUTSIDE RECORDS SUMMARY | 2024-03-01 11:14 | XMS_ITS | Continuity of Care Document ---
Author Organization [facility] ter Address [address] [place] [id number]- Care Team Providers Care Chief Medical Officer Name Role Phone Neal ROUSE, Giselle Way Primary Care Physician [place] [facility] [place]): [place]01[place]23 - 03/02/[address] [address]- Encounter Diagnosis Seizure(Final) - 03/02/23 Depression(Final) - 03/02/23 Substance use disorder(Final) - 03/02/23 Discharge Disposition: A-D/C Home Attending Physician: Yris Arevalo MD Admitting Physician: Yris Arevalo MD Referring Physician: Not on Staff, Referring [...] 01/18/19 14:13:57 EDT, Route to Pharmacy Electronically, [id number], [facility]/pharmacy #[id number] Start Date: 01/18/19 Status: Ordered [...] 0 Refills, Maintenance, 11/18/21 13:35:00 EDT, Tablet, [facility] 3, Partial fill upon patient request if the prescription is for a schedule II opioid drug., 176, cm, 11/18/21 9:34:0... Start Date: 11/18/21 Stop Date: 12/18/21 Status: Ordered Keppra 750 mg oral tablet 1 tablet = 750 mg, By Mouth, 2 times a day, # 60 tablet, 0 Refills, Maintenance, 04/07/20 3:59:00 EDT, Tablet, [facility]/pharmacy #[id number], 183, cm, 04/07/20 0:50:00 EDT, Height, 91, kg, 04/07/20 0:50:00 EDT,Dry Weight Start Date: 04/07/20 Status: Ordered Keppra 750 mg oral tablet 1 tablet = 750 mg, By Mouth, 2 times a day, # 60 tablet, 0 Refills, Maintenance, 04/07/20 4:05:00 EDT, Tablet, [facility]/pharmacy #[id number], 183, cm, 04/07/20 0:50:00 EDT, Height, 91, kg, 04/07/20 0:50:00 EDT,Dry Weight Start Date: 04/07/20 Status: Ordered Keppra 750 mg oral tablet 1 tablet = 750 mg, By Mouth, 2 times a day, # 28 tablet, 0 Refills, Maintenance, 03/02/23 5:13:00 EDT, Tablet, [facility]/pharmacy #[id number], Partial fill upon patient request if the prescription is for a schedule II opioid drug., 176, cm, 11/18/21 9:34:00 EDT,... Start Date: 03/02/23 Stop Date: 03/16/23 Status: Ordered Keppra 750 mg oral tablet 1 tablet = 750 mg, By Mouth, 2 times a day, # 60 tablet, 0 Refills, Maintenance, 11/09/20 18:16:00 EDT, Tablet, [facility]/pharmacy #[id number], Partial fill upon patient request [...] 0 Refills, Soft Stop, 07/09/20 11:32:00 EST, [facility]/pharmacy #[id number], Partial fill upon patient request [...] Daily, XDEA script for dr robles starr [id number], # 10 film, 0 Refills, Maintenance, 07/09/20 11:32:00 EST, [facility]/pharmacy #[id number], Partial fill upon patient request if the prescription is for a schedule II opioid drug., 2 film [place]... Start Date: 07/09/20 Status: Ordered Zolpidem 10, By Mouth, Daily at bedtime, 0 Refills, Maintenance, 12/23/18 22:18:28 EDT Start Date: 12/23/18 Status: Ordered Problem List Condition Confirmation Course Effective Dates Status Health St atus Informant Depression Confirmed Active Seizure Confirmed Active Generalized tonic-clonic seizure Confirmed Active Vital Signs Most recent to oldest [Reference Range]: 1 2 3 Oxygen Saturation [94-100 %] 98 % (03/02/23 5:49 AM) 100 % (03/02/23 4:15 AM) 99 % (03/02/23 2:15 AM) Pulse Rate [55-90 bpm] 96 bpm *H* (03/02/23 5:49 AM) 92 bpm *H* (03/02/23 4:15 AM) 77 bpm (03/02/23 2:15 AM) Blood Pressure [90-138/55-84 mm Hg] 122/72mm Hg (03/02/23 5:49 AM) 112/66mm Hg (03/02/23 4:15 AM) 126/81mm Hg (03/02/23 2:15 AM) Respiratory Rate [16-30 br/min] 20 br/min (03/02/23 5:49 AM) 18 br/min (03/02/23 4:15 AM) 15 br/min *L* (03/02/23 2:15 AM) Temperature [96.8-100.4 DegF] 98.8 DegF (03/02/23 2:15 AM) 98 DegF (03/01/23 10:40 PM) Liters per Minute 2 L/min (03/02/23 4:15 AM) Mode of Delivery (Oxygen) Room air (03/02/23 5:49 AM) Nasal cannula (03/02/23 4:15 AM) Room air (03/02/23 2:15 AM) Temperature Route Axillary (03/02/23 2:15 AM) Oral (03/01/23 10:40 PM) Social History Social History Type Response Smoking Status Never smoker entered on: 03/14/15 Sex Male Note * Jeff Schulte DO: PERFORM Event Display: Patient Education Leaflets Authored Date: Recurrent Seizure (Adult) ?? [id number] Recurrent Seizure (Adult) You have had another [...] gets worse? Last Reviewed Date: 2021 ?? [id number] [employer] All rights reserved. This information is not intended as a substitute for professional medical care. Always follow your healthcare professional's instructions. ?? Patient Care team information Care Team Personnel Name: Giselle De Jesus NP Position: [facility] Associate Professional Member Role: PCP Address: Address: [address] [place] [id number]- Name: Belem Ruiz RN Position: S RN Member Role: Primary Care Nurse Name: Jessy Easton RN Position: S RN Member Role: Primary Care Nurse Name: Thalia Nguyen RN Position: [facility] RN Member Role: Primary Care Nurse Name: Yris Arevalo MD Position: [facility] ED Medicine MD Member Role: ED Attending Physician Address: Address: [address] [place] [id number]- Name: Marline Burr RN Position: [facility] ED RN W/OE and Tasks Member Role: Patient Care Provider Name: Jeff Schulte DO Position: [facility] Resident Member Role: ED Resident Address: Address: [address] [place] [address] [place] [address]- Name: Rachel Pryor Position: [facility] ED TA [facility] Care Team Related Persons Name: NATA AVILA Address: home [address] [place] [address] Name: ERICKSON HUITRON Address: home [address] [place] [address] Name: BUNNY HELM Address: home [address] [place] [address]
--- OUTSIDE RECORDS SUMMARY | 2024-03-01 11:14 | XMS_ITS | Continuity of Care Document ---
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 Start Date: 04/14/23 Status: Ordered Methadone Tablet 60 mg, Tablet, By Mouth, 04/15/23 9:00:00 EDT Start Date: 04/15/23 Stop Date: 04/15/23 Status: Completed naloxone 4 mg/0.1 mL nasal spray 1 sprays, Naris, Left, Once, PRN Other respiratory depression, # 1 kit, 0 Refills, Soft Stop, 07/09/20 11:32:00 EST, [facility]/pharmacy #[id number], Partial fill upon patient request if [...] Daily, XDEA script for dr robles starr [id number], # 10 film, 0 Refills, Maintenance, 07/09/20 11:32:00 EST, [facility]/pharmacy #[id number], Partial fill upon patient request if the prescription is for a schedule II opioid drug., 2 film Beltran... Start Date: 07/09/20 Status: Ordered Problem List Condition Confirmation Course Effective Dates Status [facility] Informant Depression Confirmed Active Seizure Confirmed Active Generalized tonic-clonic seizure Confirmed Active Results Radiology Reports * Exam Date Time Procedure Performing Provider Status 04/14/23 3:[address] Cervical Spine W/O Contrast Felicia Nash; Eduard (Verified) Notes: (CT Cervical Spine W/O Contrast) Reason For Exam: Neck trauma, dangerous injury mechanism;Other: RESULT: CT Cervical Spine W/O Contrast CT Head/Brain W/O Contrast, CT Cervical Spine W/O Contrast INDICATION: Hx of Present Illness: From [place] [address] for opiate cocaine, pt has hx of seizures and takes keppra, had unwitnessed seizure but reviewed on cameras approx 2 min long, fell from standing, hit head on floor, postictal, had another seizure lasting 30 sec. +tounge bite; Reason: Trauma; sz with head strike; Clinical Question(s): Hematoma TECHNIQUE: Noncontrast head CT using axial technique was reconstructed in axial and coronal planes.Noncontrast spiral CT through the cervical spine was formatted in 3 planes. Automatic tube modulation was used for the cervical spine and iterative dose reconstruction was used for both the head and cervical spine to optimize scan parameters and image quality. CTDIvol Body: 16.00 mGy, DLP Body: 388 mGy*cm. CTDIvol Head: 39.80 mGy, DLP Head: 672 mGy*cm. COMPARISON: None. FINDINGS: Coiled Tubing Operator View Findings, Lines and Tubes: None. BRAIN AND EXTRA-AXIAL SPACES: No parenchymal hemorrhage, midline shift, or mass effect. Dawkins-white matter differentiation is wellpreserved. No acute infarct. Ventricles, sulci, and basilar cisterns are normal. No white matter lesions. No subarachnoid hemorrhage. No subdural or epidural collection. CALVARIUM, SKULL BASE, AND SOFT TISSUES: No fractures or suspicious bony lesions. The paranasal sinuses and mastoid air cells are clear. Visualized orbits and globes are intact. The extracranial soft tissues are unremarkable. CERVICAL SPINE: No fracture. No acute osseous abnormalities. Normal alignment. No locked or perched facet. Intervertebral disc spaces and vertebral body heightsare preserved. OTHER BONES: No acute abnormality. CERVICAL SOFT TISSUES AND LUNG APICES: Normal soft tissues. Visualized lung apices are clear. IMPRESSION: No acute abnormality of the head or cervical spine. WSN: [id number] Ordering Physician: Solo Garcia Dictated By: Dmitriy Stephenson MD Dictated Date/Time: 04/14/23 3:58 pm Reviewed By: Dmitriy Stephenson MD Signed By: Dmitriy Stephenson MD Signed Date/Time: 04/14/23 3:58 pm Transcribed By: KIMMIE Transcribed Date/Time: 04/14/23 3:53 pm * Exam Date Time Procedure Performing Provider Status 04/14/23 3:[address] Head/Brain W/O Contrast Renae Nash; Auth (Verified) Notes: (CT Head/Brain W/O Contrast) Reason For Exam: sz with head strike;Trauma RESULT: CT Head/Brain W/O Contrast CT Head/Brain W/O Contrast, CT Cervical Spine W/O Contrast INDICATION: Hx of Present Illness: From [place] [facility] [address] for opiate cocaine, pt has hx of seizures and takes keppra, had unwitnessed seizure but reviewed on cameras approx 2 min long, fell from standing, hit head on floor, postictal, had another seizure lasting 30 sec. +tounge bite; Reason: Trauma; sz with head strike; Clinical Question(s): Hematoma TECHNIQUE: Noncontrast head CT using axial technique was reconstructed in axial and coronal planes.Noncontrast spiral CT through the cervical spine was formatted in 3 planes. Automatic tube modulation was used for the cervical spine and iterative dose reconstruction was used for both the head and cervical spine to optimize scan parameters and image quality. CTDIvol Body: 16.00 mGy, DLP Body: 388 mGy*cm. CTDIvol Head: 39.80 mGy, DLP Head: 672 mGy*cm. COMPARISON: None. FINDINGS: Coiled Tubing Operator View Findings, Lines and Tubes: None. BRAIN AND EXTRA-AXIAL SPACES: No parenchymal hemorrhage, midline shift, or mass effect. Dawkins-white matter differentiation is wellpreserved. No acute infarct. Ventricles, sulci, and basilar cisterns are normal. No white matter lesions. No subarachnoid hemorrhage. No subdural or epidural collection. CALVARIUM, SKULL BASE, AND SOFT TISSUES: No fractures or suspicious bony lesions. The paranasal sinuses and mastoid air cells are clear. Visualized orbits and globes are intact. The extracranial soft tissues are unremarkable. CERVICAL SPINE: No fracture. No acute osseous abnormalities. Normal alignment. No locked or perched facet. Intervertebral disc spaces and vertebral body heightsare preserved. OTHER BONES: No acute abnormality. CERVICAL SOFT TISSUES AND LUNG APICES: Normal soft tissues. Visualized lung apices are clear. IMPRESSION: No acute abnormality of the head or cervical spine. WSN: [id number] Ordering Physician: Solo Garcia Dictated By: Dmitriy Stephenson MD Dictated Date/Time: 04/14/23 3:58 pm Reviewed By: Dmitriy Stephenson MD Signed By: Dmitriy Stephenson MD Signed Date/Time: 04/14/23 3:58 pm Transcribed By: KIMMIE Transcribed Date/Time: 04/14/23 3:53 pm Vital Signs Most recent to oldest [Reference Range]: 1 2 3 Weight 86.5 kg (04/15/23 6:27 AM) 86.5 kg (04/15/23 1:24 AM) 86.5 kg (04/14/23 9:13 PM) Oxygen Saturation [94-100 %] 98 % (04/15/23 11:53 AM) 97 % (04/15/23 9:28 AM) 96 % (04/15/23 6:27 AM) Pulse Rate [55-90 bpm] 85 bpm (04/15/23 11:53 AM) 96 bpm *H* (04/15/23 9:28 AM) 89 bpm (04/15/23 6:27 AM) Blood Pressure [90-138/55-84 mm Hg] 122/74mm Hg (04/15/23 11:53 AM) 110/68mm Hg (04/15/23 9:28 AM) 112/70mm Hg (04/15/23 6:27 AM) Respiratory Rate [16-30 br/min] 17 br/min (04/15/23 11:53 AM) 17 br/min (04/15/23 10:28 AM) 18 br/min (04/15/23 9:28 AM) Temperature [96.8-100.4 DegF] 98.2 DegF (04/14/23 8:54 PM) 98.8 DegF (04/14/23 12:59 PM) Liters per Minute 2 L/min (04/14/23 1:49 PM) Mode of Delivery (Oxygen) Room air (04/15/23 11:53 AM) Room air (04/15/23 9:28 AM) Room air (04/15/23 6:27 AM) Blood pressure sites Arm, left (04/15/23 11:53 AM) Arm, left (04/15/23 9:28 AM) Arm, left (04/15/23 6:27 AM) Temperature Route Oral (04/14/23 8:54 PM) Oral (04/14/23 12:59 PM) Social History Social History Type Response Smoking Status Smoker, current stat us unknown entered on: 04/14/23 Sex Male Admission evaluation note * Jordon CASTANON, Eli: PERFORM, MODIFY, MODIFY, MODIFY, MODIFY, MODIFY, MODIFY, MODIFY Event Display: Admission Note Authored Date: [id number] Patient: ??ELINOR MENDOZA ? Age:??27 Years?Sex:??Male?:??1995?? Chief Complaint From [place] [address] for opiate&cocaine, pt has hx of seizures and takes keppra, had unwitnessed seizure but reviewed on cameras approx 2 min long, fell from standing, hit head on floor, postictal, had another seizure lasting 30 sec. +tounge bite History of Present Illness 27-year-old male with past medical history of seizure disorder, polysubstance abuse who presents from [facility] after seizure. ??When I saw the patient in the ED he was in a postictal state, somnolent but arousable and unable to provide history.?He was oriented to??place and person.??He is able to answer yes and no to questions, ??Is not in any pain currently. Rest of the history was obtained from??the facility. Patient is currently undergoing treatment for polysubstance abuse at [facility] [place] where he had 2 seizures today.The first 1 lasted for roughly 5 minutes and the patient did strike his head on the ground.?Patient had another seizure??in the ambulance per the EMS. ??Facility reports that the patient has been taking his Keppra as directed.?? 3??he was diagnosed with epilepsy at the age of 18 and years had been well controlled prior. Before coming to the hospital the patient had??admitted to the [facility] where he had been taking some sort of substance??presumed to be??some sort of opioid. Patient has no current??smoking or??alcohol use ?? ED course: No leukocytosis or anemia.?? No electrolyte abnormality, or abnormal renal function.?? Lactic acid 2.9. Normal Keppra level Patient has received 1.5 g load of Keppra here. Patient did have another seizure while he was waiting for CT. was given??4 mg IV lorazepam seem to have good effect in breaking his seizures. No recurrent seizure activity since then CT head and C-spine show no evidence of trauma Review of Systems Unable to assess. Physical Exam Vitals & Measurements T:??98.8?F?? HR:??88??(Peripheral)?? RR:??16?? BP:??117/61?? SpO2:??96%?? Constitutional: Somnolent, in no distress. Mental Status: Oriented to person, place Head: Normocephalic. Respiratory: Clear to auscultation. No wheezing, rales or rhonchi. Cardiovascular: S1 S2 regular. No murmurs, rubs or gallops. Gastrointestinal: Abdomen soft, non-tender Assessment/Plan 27-year-old male with past medical history of epilepsy, polysubstance abuse, depression ??who presents from [facility] after multiple seizure episodes. ?? History of epilepsy (Z86.69) Breakthrough Seizure (R56.9) Patient??compliant with his Keppra per facility. Keppra level was normal Has been well controlled??prior to this episode Received??1.5 g of Keppra in the ED??and 4 mg of??IV lorazepam Seizures could be in the setting of substance abuse Plan: ??? Seizure precautions ??? continue Keppra 750mg BID ??? Neurology consult ?? Polysubstance abuse (F19.10) Concern the patient has been taking??some sort of opioid??at the facility Could possibly have contributed to patient's??seizures Plan: ??? Urine tox screen ?Holding home methadone 60 mg daily for now, dose confirmed with facility ? EKG tomorrow morning: if QTc<500, can continue methadone ?? Depression (F32.A) ?Continue home??hydroxyzine 25 mg twice daily as PRN for now ?Hold home quetiapine??100 mg in the a.m. and p.m., 200 mg at bedtime, as patient somnolent ?Continue home??prazosin 1 mg daily at bedtime ?? Quality metrics Presumed FULL code Regular diet No ppx per VTE guidelines? Patient care discussed with ??Edmond Ruvalcaba MD Internal Medicaine PGY-1 Pager #[phone] Problem List/Past Medical History Ongoing Depression Generalized tonic-clonic seizure Seizure Procedure/Surgical History ???Exploratory laparotomy???Suture ligation Medications Inpatient Acetaminophen Tablet, 650 mg, By Mouth, Every 4 hours, PRN Docusate Sodium Capsule, 100 mg= 1 capsule, By Mouth, 2 times a day, PRN Melatonin Tablet, 3 mg, By Mouth, Daily at bedtime, PRN NaCL 0.9% Flush, 3 mL, IV Push, Every 8 hours NaCL 0.9% Flush, 3 mL, IV Push, Every 8 hours, PRN Senna Tablet, 8.6 mg= 1 tablet, By Mouth, 2 times a day, PRN Home hydrOXYzine hydrochloride 25 mg oral tablet, 25 mg= 1 tablet, By Mouth, 2 times a day Keppra 750 mg oral tablet, 750 mg= 1 tablet, By Mouth, 2 times a day methadone 40 mg oral tablet, dispersible, 60 mg, By Mouth, Daily prazosin 1 mg oral capsule, 1 mg= 1 capsule, By Mouth, Daily at bedtime SEROquel 100 mg oral tablet, 100 mg= 1 tablet, By Mouth, 2 times a day SEROquel 200 mg oral tablet, 200 mg= 1 tablet, By Mouth, Daily at bedtime Allergies NKA Social History Substance Abuse Type: Marijuana. Tobacco Use: Smoker, current status unknown. Immunizations Vaccine Date Status tetanus/diphtheria/pertussis, acel(Tdap) 06/20/2020 Given pneumococcal 23-valent vaccine - Not Given Comments : Patient Refuses pneumococcal 23-valent vaccine - Not Given Comments : Patient Refuses * Edmond CASTANON, Hector: PERFORM Event Display: Admission Note Authored Date: [id number] ??Attending Attestation: I have seen and evaluated this patient.?? I have discussed the case and its management with the resident and agree with the findings and isabell documented in the resident's note.?? I?? will continue to provide care to this patient till 7 AMof the admitting date.?? 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 First seizure lasted for 5 minutes.?? He did hit his head on the ground and shortly after that had a second seizure.?? Patient was unable to tellwhat really happened to him.?? History of postictal confusion.?? He was complaining pain in his tongue/bit his tongue.?? EKG showed sinus tachycardia.?? He had 1 more episode of seizure in the ED.?? CT of the head ruled out any acute intracranial pathology.?? CT of the cervical spine is negative.??Patient is loaded with Keppra.?? We will continue with the Keppra, seizure prophylaxis, Ativan as needed for the seizure.?? We will follow-up with neurology for further recommendation.?? No sign or symptoms of infectious etiology.?? Lab work-up showed slightly high lactate level.?? Patient have a EEG in 2014 that was within the normal limits.?? MRI in 2014 was normal.?? Keppra level is normal.?? Most likely seizure is provoked by substance abuse. EKG study * Event Display: ECG 12-Lead Authored Date: Please click on pdf link to open report * Event Display: ECG 12-Lead Authored Date: Ventricular Rate: 89 BPM Atrial Rate: 89 BPM P-R Interval: 144 ms QRS Duration: 108 ms Q-T Interval: 382 ms QTC Calculation(Bazett): 464 ms P [place]: 24 degrees R [place]: 26 degrees T [place]: 16 degrees Normal sinus rhythm Normal ECG When compared with ECG of 14-APR-2023 13:44, QT has shortened Confirmed by LAUREN MCKINLEY MD ([id number]) on 04/15/2023 7:58:35 AM [place]: LAUREN MCKINLEY MD * Event Display: ECG 12-Lead Authored Date: [id number] Please click on pdf link to open report * Event Display: ECG 12-Lead Authored Date: Ventricular Rate: 108 BPM Atrial Rate: 108 BPM P-R Interval: 162 ms QRS Duration: 110 ms Q-T Interval: 360 ms QTC Calculation(Bazett): 482 ms P [place]: 36 degrees R [place]: 24 degrees T [place]: 17 degrees Sinus tachycardia QT interval prolongation Abnormal ECG When compared with ECG of 18-NOV-2021 09:33, QT interval has lengthened Confirmed by LAUREN MCKINLEY MD ([id number]) on 04/14/2023 4:12:16 PM [place]: LAUREN MCKINLEY MD Consult note * Mel Love NP: PERFORM Event Display: Consultation Note Authored Date: [id number] Patient: ??ELINOR MENDOZA ? Age:??27 Years?Sex:??Male?:??1995?? Chief Complaint/Reason for Consult From [place] [facility] [address] for opiate&cocaine, pt has hx of seizures and takes keppra, had unwitnessed seizure but reviewed on cameras approx 2 min long, fell from standing, hit head on floor, postictal, had another seizure lasting 30 sec. +tounge bite History of Present Illness Mr. Mendoza, 27 yo male with history Depression, ? psychiatric illness (he reports the was suspected of having Bipolar due to his mood changes but has not had any formal evaluation or treatment), h/o of seizures, he followed with pediatric neurology, not in any neurology care at present time, he?? was suspected of having focal epilepsy wit secondary generalization, had a normal brain MRI?? and normal interictal R. EEG in the past, who is on Keppra, 750 mg bid and reports compliance, who presents from [facility], was section [facility], h/o of polysubstance abuse, who presents from facility after he had 2 min GTC seizure, hit his head and had a tongue bite followed by subsequent 30 sec seizure, he was given 1.5g of Keppra, 4 mg of Ativan, he is now at baseline, Head CT non acute, urine tox positive for benzos. He has not had any recent illness, no loss of sleep. Keppra level on admit 17.7. Review of Systems no complaints. Physical Exam Vitals & Measurements T:??98.2?F?? HR:??85??(Peripheral)?? RR:??17?? BP:??122/74?? SpO2:??98%?? WT:??86.5??kg? GENERAL APPERANCE: ??stated age HEENT:??NC/AT NECK: supple LUNGS: ??Normal I:E HEART: RRR ABD: soft, ND, NT. EXT: No clubbing, no edema SKIN: no obvious rashes NEURO:??awake and alert oriented to his name, age, place, mo/yr, able to say the president's name when provided with choices no aphasia appropriately is following commands Cranial Nerves:?? Pupils:PERRL Visual:VFF Extra ocular movements: Intact Facial sensation:intact b/l, no FD Hearing: intact bilaterally to voice Speech: clear, fluent, appropriate Tongue: Protrudes Midline Gag: soft palate raises equally Shoulder shru/5 Neck musculature: 5/5 Motor Exam: Strength:??5/5 in the b/l UEs and b/l??LEs. tone is nml DTRs 1+ at b/l UEs, 1+ at b/l knees and ankles, b/l toes down, no ankle clonus Sensory: sensation to light touch intact and equal bilaterally to face, bilateral upper extremities, and bilateral lower extremities Coordination: FTN intact, Gabby symmetric, NO pronator drift Stance and Gait:??is steady, nml gait. ? (04/14/2023 15:[address] Head/Brain W/O Contrast) IMPRESSION: ?? No acute abnormality of the head or cervical spine. ?? WSN: [id number] ?? [1] ? (04/14/2023 15:[address] Cervical Spine W/O Contrast) IMPRESSION: ?? No acute abnormality of the head or cervical spine. ?? WSN: [id number] ? [2] Assessment/Plan 27-year-old male with history of probable??focal episodes of seizures with secondary generalization??who presents from??a rehab facility with a 2-minute seizure followed by seizure, on Keppra 750 mg, Keppra level 17.7 on admission??he was given 4 mg of Ativan and 1.5 g??of Keppra load. ??He has since returned to baseline. ??A head CT was negative. ??He has not had any recent illnesses.?Last seizure was about 6 months ago and at that time??he was using multiple substances he did not present to the hospital for evaluation of this. ??at this time??suggest to increase his Keppra??to 1000 mg twice daily.?? He is okay to be discharged.?? We will try to get an outpatient Keppra level in about 1 week time and set up for??seizure follow-up in the epilepsy clinic. ?? galina Segal notified, via Robo[employer]. ?? Problem List/Past Medical History Ongoing Depression Generalized tonic-clonic seizure Seizure Procedure/Surgical History Suture ligation Exploratory laparotomy Home Medications Acetaminophen: 650 mg = 2 tablet, By Mouth, Every 4 hours, PRN (as needed for pain) Buprenorphine-Naloxone: 2 film, Sublingual, Daily, XDEA script for dr robles [id number] BuPROpion: 100 mg = 1 tablet, By Mouth, Daily in AM BuPROpion: 100 mg = 1 tablet, By Mouth, 2 times a day Docusate: 100 mg = 1 capsule, By Mouth, 2 times a day, PRN (as needed for constipation) Gabapentin: 100 mg = 1 capsule, By Mouth, 3 times a day HydrOXYzine: 25 mg = 1 tablet, By Mouth, 2 times a day Ibuprofen: 600 mg = 1 tablet, By Mouth, 4 times a day, PRN (for pain) levETIRAcetam: 1,000 mg = 1 tablet, By Mouth, 2 times a day Methadone: 60 mg, By Mouth, Daily nalOXONE: 1 sprays, Naris, Left, Once, PRN (Other respiratory depression) Prazosin: 1 mg = 1 capsule, By Mouth, Daily at bedtime Allergies NKA Social History Substance Abuse Type: Marijuana. Tobacco Use: Smoker, current status unknown. Family History No family history recorded. [1]??CT Head/Brain W/O Contrast; Dmitriy Stephenson MD 04/14/2023 15:48 EDT [2]??CT Cervical Spine W/O Contrast; Dmitriy Stephenson MD 04/14/2023 15:48 EDT * Pilo De Souza MD: PERFORM Event Display: Consultation Note Authored Date: [id number] Attending PA/EXPERIENCE PLANNING STRATEGIST Attestation:??I have reviewed the patient's medical history, findings on examination, diagnosis and treatment plan as documented in the PA/EXPERIENCE PLANNING STRATEGIST note. Case and its management discussed with PA/EXPERIENCE PLANNING STRATEGIST. Note * Oli Segal DO: PERFORM, MODIFY Event Display: Discharge/Transfer Note Hospital Authored Date: Patient: ??ELINOR MENDOZA ? Age:??27 Years?Sex:??Male?:??1995?? Patient Information Discharge Location: [facility] Primary Care Physician: Not on Staff, PCP Admit Date/Time: 04/14/23 12:38 Discharge Date:??04/15/2023 12:32 Discharge Disposition Discharge Disposition: [facility] Discharge Diagnosis Depression (F32.A) History of epilepsy (Z86.69) Polysubstance abuse (F19.10) Seizure (R56.9) ?? _ Discharge Medications Acetaminophen (acetaminophen 325 mg oral tablet)?650?Milligram?2?tablet?By Mouth?Every 4 hours?as needed?as needed for pain Buprenorphine-Naloxone (Suboxone 8 mg-2 mg Sublingual Film)?2?Film?Sublingual?Daily?[facility] script for dr robles [id number] BuPROpion (buPROPion 100 mg/12 hours (SR) oral tablet, extended release)?1?tab(s)?100?Milligram?By Mouth?Daily in AM?for 30?Days BuPROpion (buPROPion 100 mg oral tablet)?1?tab(s)?100?Milligram?By Mouth?2 times a day Docusate (docusate sodium 100 mg oral capsule)?100?Milligram?1?capsule?By Mouth?2times a day?as needed?for 30?Days?as needed for constipation Gabapentin (gabapentin 100 mg oral capsule)?100?Milligram?1?capsule?By Mouth?3 times a day HydrOXYzine (hydrOXYzine hydrochloride 25 mg oral tablet)?1?tab(s)?25?Milligram?By Mouth?2 times a day Ibuprofen (ibuprofen 600 mg oral tablet)?600?Milligram?1?tablet?By Mouth?4 times a day?as needed?for 10?Days?for pain levETIRAcetam (Keppra 1000 mg oral tablet)?1?tab(s)?1,000?Milligram?By Mouth?2 times a day Methadone (methadone 40 mg oral tablet, dispersible)?60?Milligram?By Mouth?Daily nalOXONE (naloxone 4 mg/0.1 mL nasal spray)?1?spray(s)?Naris, Left?Once?as needed?Other respiratory depression Prazosin (prazosin 1 mg oral capsule)?1?Milligram?1?capsule?By Mouth?Daily at bedtime ? Quality Measures Tobacco Use Treatment:? Doses Changed keppra increased to 1g bid Hospital Course ??History of epilepsy (Z86.69) Breakthrough Seizure (R56.9) Patient??compliant with his Keppra per facility. Keppra level was normal Has been well controlled??prior to this episode Received??1.5 g of Keppra in the ED??and 4 mg of??IV lorazepam Seizures could be in the setting of substance abuse brain imaging [facility] neuro consulted recc increase in keppra to 1g bid no seizures witnessed in hospital ?? Polysubstance abuse (F19.10) c/w methadone 60mg daily Objective Vital Signs?? Temperature: 98.2 DegF (04/14/23 20:54:00) Temperature Route: Oral (04/14/23 20:54:00) Pulse Rate: 85 bpm (04/15/23 11:53:00) Respiratory Rate: 17 br/min (04/15/23 11:53:00) Systolic Blood Pressure: 122 mm Hg (04/15/23 11:53:00) Diastolic Blood Pressure: 74 mm Hg (04/15/23 11:53:00) Blood pressure sites: Arm, left (04/15/23 11:53:00) Mean Arterial Pressure: 84 mm Hg (04/15/23 06:27:00) Pulse Pressure: 48 mm Hg (04/15/23 11:53:00) Oxygen Saturation: 98 % (04/15/23 11:53:00) Liters per Minute: 2 L/min (04/14/23 13:49:00) Mode of Delivery (Oxygen): Room air (04/15/23 11:53:00) End Tidal CO2: 60 mm Hg (04/14/23 16:03:00) Early Warning Score: 0 (04/15/23 11:54:18) ? . Physical Exam General:??NAD Head:??NCAT Eyes:??EOMI Ear, Nose and Throat:??MMM Respiratory:??CTA Cardiovascular:RRR Gastrointestinal:??soft nt nd Neurologic :alert and oriented ?? [facility] Pending Results No Pending Results Home Health Face to Face ^HomeHealthFTF Results Discharge Labs BLOOD COUNT & DIFF WBC 6.7 k/mm3 ()?? 04/15/2023 05:55 RBC 4.52 m/mm3 (Low)?? 04/15/2023 05:55 Hgb 13.2 Gm/dL (Low)?? 04/15/2023 05:55 Hct 38.7 % (Low)?? 04/15/2023 05:55 MCV 85.6 femtoliters ()?? 04/15/2023 05:55 MCH 29.2 pg ()?? 04/15/2023 05:55 MCHC 34.1 g/dL ()?? 04/15/2023 05:55 Platelet Count 343 k/mm3 ()?? 04/15/2023 05:55 RDW-SD 39.5 femtoliters ()?? 04/15/2023 05:55 MPV 8.9 femtoliters (Low)?? 04/15/2023 05:55 Nucleated RBC (Automated) 0.0 #/100 WBC'S ()?? 04/15/2023 05:55 Abs. NRBC 0.0 k/mm3 ()?? 04/15/2023 05:55 Abs. Neut 3.3 k/mm3 ()?? 04/14/2023 13:00 Abs. Lymph 2.3 k/mm3 ()?? 04/14/2023 13:00 Abs. Esmeralda 0.6 k/mm3 ()?? 04/14/2023 13:00 Abs. Eo 0.2 k/mm3 ()?? 04/14/2023 13:00 Abs. Baso 0.0 k/mm3 ()?? 04/14/2023 13:00 Neut % 51.3 % ()?? 04/14/2023 13:00 Lymph % 35.5 % ()?? 04/14/2023 13:00 Esmeralda % 9.7 % ()?? 04/14/2023 13:00 Eos % 2.3 % ()?? 04/14/2023 13:00 Baso % 0.3 % ()?? 04/14/2023 13:00 Imm Gran 0.9 % ()?? 04/14/2023 13:00 Abs. Imm Gran 0.1 k/mm3 ()?? 04/14/2023 13:00 ?? CARDIAC CK, Total 233 units/L ()?? 04/14/2023 13:00 ? CHEM GENERAL Sodium 139 mmol/L ()?? 04/15/2023 05:55 Potassium 4.2 mmol/L ()?? 04/15/2023 05:55 Chloride 100 mmol/L ()?? 04/15/2023 05:55 Bicarbonate Level 27 mmol/L ()?? 04/15/2023 05:55 Anion Gap 12 ()?? 04/15/2023 05:55 Glucose Level 104 mg/dL (High)?? 04/15/2023 05:55 Glucose, POC 117 mg/dL (High)?? 04/14/2023 13:35 BUN 13 mg/dL ()?? 04/15/2023 05:55 Creatinine-Blood 0.8 mg/dL ()?? 04/15/2023 05:55 Estimated GFR Creatinine 125 ML/MIN/1.73 M2 ()?? 04/15/2023 05:55 Calcium 9.3 mg/dL ()?? 04/15/2023 05:55 Protein, Total 7.6 Gm/dL ()?? 04/14/2023 13:00 Albumin 4.6 Gm/dL ()?? 04/14/2023 13:00 AG Ratio 1.5 ()?? 04/14/2023 13:00 Alkaline Phosphatase 64 units/L ()?? 04/14/2023 13:00 AST (SGOT) 27 units/L ()?? 04/14/2023 13:00 ALT (SGPT) 28 units/L ()?? 04/14/2023 13:00 Bilirubin, Total 0.2 mg/dL ()?? 04/14/2023 13:00 Lactate 2.9 mmol/L (High)?? 04/14/2023 13:00 ? HEME OTHER Hold Blue Top SPECIMEN DISCARDED AFTER 4 HOURS. ()?? 04/14/2023 13:00 ? MISC. CHEMISTRY Hold Green Top SPECIMEN DISCARDED AFTER 1 WEEK ()?? 04/14/2023 13:00 ? TOXICOLOGY/TDM Barbiturate Screen, Urine NONE DETECTED ()?? 04/15/2023 08:40 Cannabinoid Screen, Urine NONE DETECTED ()?? 04/15/2023 08:40 Cocaine Metabolite Screen, Urine NONE DETECTED ()?? 04/15/2023 08:40 Benzodiazepine Screen, Urine POSITIVE (Abnormal)?? 04/15/2023 08:40 Amphetamine Screen, Urine NONE DETECTED ()?? 04/15/2023 08:40 Opiate Screen, Urine NONE DETECTED ()?? 04/15/2023 08:40 Levetiracetam Level 17.70 mg/L ()?? 04/14/2023 13:00 ? 35_ minutes spent on discharge Patient Care team information Care Team Personnel Name: Joseph DINEROBelem Position: [facility] RN Member Role: Primary Care Nurse Name: Not on Staff, PCP Position: [facility] Physician (General Medicine) Member Role: PCP Name: Jessy Easton RN Position: [facility] RN Member Role: Primary Care Nurse Name: Thalia Nguyen RN Position: [facility] RN Member Role: Primary Care Nurse Name: JuneSuzanne Mcintosh Attending Position: [facility] ED Medicine MD Name: Mary Castillo Position: [facility] ED RN W/OE and Tasks Member Role: Patient Care Provider Name: Solo Vance Position: [facility] ED TA [facility] Member Role: Patient Care Provider Care Team Related Persons Name: NATA AVILA Address: [address] [place] [address] Name: ERICKSON HUITRON Address: home [address] [place] [address] Name: BUNNY HELM Address: home [address] [place] [address]
--- OUTSIDE RECORDS SUMMARY | 2024-03-01 11:14 | XMS_ITS | Continuity of Care Document ---
Author Organization [facility] ter Address [address] [place] [id number]- Care Team Providers Care Training Program Developer Name Role Phone Not on Staff, PCP Primary Care Physician Unavail able Encounter [facility] Date(s): 07/09/20 - 07/09/[address] [address]- Discharge Disposition: A-D/C Home Attending Physician: Sylvia Starr MD Admitting Physician: Sylvia Starr MD Referring Physician: Not on Staff, Referring [...] 01/18/19 14:13:57 EDT, Route to Pharmacy Electronically, [id number], [facility]/pharmacy #[id number] Start Date: 01/18/19 Status: Ordered [...] 0 Refills, Maintenance, 04/07/20 3:59:00 EDT, Tablet, [facility]/pharmacy #[id number], 183, cm, 04/07/20 0:50:00 EDT, Height, 91, kg, 04/07/20 0:50:00 EDT,Dry Weight Start Date: 04/07/20 Status: Ordered Keppra 750 mg oral tablet 1 tablet = 750 mg, By Mouth, 2 times a day, # 60 tablet, 0 Refills, Maintenance, 04/07/20 4:05:00 EDT, Tablet, [facility]/pharmacy #[id number], 183, cm, 04/07/20 0:50:00 EDT, [...] 0 Refills, Soft Stop, 07/09/20 11:32:00 EST, [facility]/pharmacy #[id number], Partial fill upon patient request [...] film, Sublingual, Daily, XDEA script for dr sylvia starr [id number], # 10 film, 0 Refills, Maintenance, 07/09/20 11:32:00 EST, [facility]/pharmacy #[id number], Partial fill upon patient request [...] 3 Oxygen Saturation [94-100 %] 99 % (07/09/20 2:43 PM) 99 % (07/09/20 10:27 AM) 99 % (07/09/20 10:11 AM) Pulse Rate [55-90 bpm] 72 bpm (07/09/20 2:43 PM) 90 bpm (07/09/20 10:27 AM) 107 bpm *H* (07/09/20 10:11 AM) Blood Pressure [90-138/55-84 mm Hg] 107/57mm Hg (07/09/20 2:43 PM) 117/68mm Hg (07/09/20 10:27 AM) Respiratory Rate [16-30 br/min] 16 br/min (07/09/20 2:43 PM) 18 br/min (07/09/20 10:27 AM) Temperature [96.8-100.4 DegF] 98.4 DegF (07/09/20 10:27 AM) Mode of Delivery (Oxygen) Room air (07/09/20 2:43 PM) Room air (07/09/20 10:27 AM) Room air (07/09/20 10:11 AM) Blood pressure sites Arm, right (07/09/20 10:27 AM) Temperature Route Oral (07/09/20 10:27 AM) Social History Social History Type Response Smoking Status Never smoker entered on: 03/14/15 Sex Male
--- OUTSIDE RECORDS SUMMARY | 2024-03-01 11:14 | XMS_ITS | Continuity of Care Document ---
Author Organization [facility] Address Unknown Care Team Providers Care Concrete Batcher Name Role Phone Not on Staff, PCP Primary Care Physician Unavail able [place] [facility] [place] 07[place]21 [facility] Allergies, Adverse Reactions, Alerts No Known Allergies [...] 01/18/19 14:13:57 EDT, Route to Pharmacy Electronically, [id number], [facility]/pharmacy #[id number] Start Date: 01/18/19 Status: Ordered [...] 0 Refills, Maintenance, 04/07/20 3:59:00 EDT, Tablet, [facility]/pharmacy #[id number], 183, cm, 04/07/20 0:50:00 EDT, Height, 91, kg, 04/07/20 0:50:00 EDT,Dry Weight Start Date: 04/07/20 Status: Ordered Keppra 750 mg oral tablet 1 tablet = 750 mg, By Mouth, 2 times a day, # 60 tablet, 0 Refills, Maintenance, 04/07/20 4:05:00 EDT, Tablet, [facility]/pharmacy #1234, 183, cm, 04/07/20 0:50:00 EDT, Height, 91, kg, 04/07/20 0:50:00 EDT,Dry Weight Start Date: 04/07/20 Status: Ordered Keppra 750 mg oral tablet 1 tablet = 750 mg, By Mouth, 2 times a day, # 60 tablet, 0 Refills, Maintenance, 11/09/20 18:16:00 EDT, Tablet, [facility]/pharmacy #[id number], Partial fill upon patient request [...] 0 Refills, Soft Stop, 07/09/20 11:32:00 EST, [facility]/pharmacy #[id number], Partial fill upon patient request [...] Daily, XDEA script for dr robles starr [id number], # 10 film, 0 Refills, Maintenance, 07/09/20 11:32:00 EST, [facility]/pharmacy #[id number], Partial fill upon patient request if the prescription is for a schedule II opioid drug., 2 film Beltran... Start Date: 07/09/20 Status: Ordered Zolpidem 10, By Mouth, Daily at bedtime, 0 Refills, Maintenance, 12/23/18 22:18:28 EDT Start Date: 12/23/18 Status: Ordered Problem List Condition Effective Dates Status Health Status Inform ant Depression(Confirmed) Active Seizure(Confirmed) Active Generalized tonic-clonic seizure(Confirmed) Active Social History Social History Type Response Smoking Status Never smoker entered on: 03/14/15 Sex Male
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
[2024-03-01 11:18] VITALS: BP 116/60; PULSE 112; RESP 12; TEMP 36.3; O2SAT 98; BMI 30.2
== END 2024-03-01 11:49 | disposition home or self-care (01) ==
LOC: HO.HMGFM 11:12
PROVIDERS: PCP Family Medicine; Visit Provider Family Medicine
DX: G40.909 Epilepsy, unspecified, not intractable, without status epilepticus (principal); F31.9 Bipolar disorder, unspecified; M79.604 Pain in right leg; F41.8 Other specified anxiety disorders; Z87.828 Personal history of other (healed) physical injury and trauma
CPT/HCPCS: 99214